=== PATIENT | female | born 1985 ===

== ENCOUNTER 2019-08-21 16:33 | Outpatient (CLI) | payer OTHER ==
[~2019-08-21 16:33] MED LIST: ENDOCET 5/325 T1 TAB PO; PERCOCET 5/3251 TAB PO
== END 2019-08-21 16:44 | disposition home or self-care (01) ==
LOC: LAB 16:33
DX: M32.8 Other forms of systemic lupus erythematosus (principal); M87.052 Idiopathic aseptic necrosis of left femur; M87.051 Idiopathic aseptic necrosis of right femur; D50.8 Other iron deficiency anemias; D51.1 Vitamin B12 deficiency anemia due to selective vitamin B12 malabsorption with proteinuria; D51.0 Vitamin B12 deficiency anemia due to intrinsic factor deficiency; D55.0 Anemia due to glucose-6-phosphate dehydrogenase [G6PD] deficiency; D68.8 Other specified coagulation defects